=== PATIENT | male | born 1950 | race Caucasian/White ===

== ENCOUNTER 2018-06-09 13:22 | Emergency (ER) | payer OTHER ==
[~2018-06-09] VITALS: Ht 170.2 cm; Wt 92.0 kg
[~2018-06-09 13:22] MED LIST: AMBIEN5 MG PO; ASCORBIC ACID500 M3 PO; ASPIR 8181 M1 PO; CELEBREX200 MG PO; COSOPT 0.5200 DROP/1 BOTH EYES; COUMADIN,JANTOVE1 MG PO; CRESTOR5 MG PO; DAILY VITE1 EAC1 PO; DILANTIN100 MG PO; FOLIC ACID1 MG PO; Feosol PO; HYDROCHLOROTHIA25 MG PO; Hydrodiuril,Oretic,E PO; KEPPRA250 MG PO; KEPPRA500 MG PO; KEPPRA750 MG PO; Keppra PO; LASIX20 MG PO; LINZESS145 MCG PO; LINZESS290 MCG PO; LO-DOSE ASPIRIN81 M1 PO; LUMIGAN 0.50 DROP/22 BOTH EYES; Lasix PO; METAMUCIL0.52 GM PO; MOBIC15 MG PO; MYSOLINE250 M1 PO; MYSOLINE250 MG PO; NABUMETONE750 M1 PO; NABUMETONE750 MG PO; OMEPRAZOLE40 M1 PO; OMEPRAZOLE40 MG PO; ONE DAILY TABL1 EAC1 PO; OXYCODONE HCL5 MG PO; PHENOBARBITAL32.4 MG PO; PREDNISONE10 MG PO; PREDNISONE20 MG PO; PRILOSEC40 MG PO; PRIMIDONE250 MG PO; PriLOSEC PO; SENOKOT S,PE1 TABLET PO; STOOL SOFTENER100 MG PO; VANCOCIN 125 M125 MG PO; VIMPAT150 MG PO; VIMPAT50 MG PO; VITAMIN D400 UNI1 PO; Vicodin,Norco 5/325 PO; ZOFRAN4 MG PO
[2018-06-09 14:18] LABS: HEMATOCRIT 39.7 % (38.0-50.0); HEMOGLOBIN 13.9 G/DL (12.5-16.6); MCH 32.3 PG (29.0-34.0); MCV 92.1 FL (86-99); PLATELET COUNT 152 K/uL (156-360); RBC DIS.WIDTH-CV 13.2 % (11.8-14.6); RBC DIS.WIDTH-SD 45.4 % (39-53); RED BLOOD COUNT 4.31 M/uL (4.00-5.50); WHITE BLOOD COUNT 8.4 K/uL (4.1-10.2)
[2018-06-09 14:28] LABS: ALBUMIN 4.3 g/dL (3.2-4.8); CHLORIDE 107 mEq/L (99-109); POTASSIUM 4.4 mEq/L (3.7-5.4); SODIUM 142 mEq/L (136-147)
[2018-06-09 14:30] LABS: GLUCOSE 97 mg/dL (70-99)
[2018-06-09 14:32] LABS: TOTAL BILIRUBIN 0.5 mg/dL (0.0-1.0)
[2018-06-09 14:34] LABS: ALKALINE PHOSPHATASE 135 IU/L (3-129); CREATININE 1.2 mg/dL (0.6-1.3); GFR ESTIMATE (CALCULATED) > 59 mL/min/ (58.99-99999)
[2018-06-09 14:35] LABS: UREA NITROGEN (BUN) 22 mg/dL (9-23)
[2018-06-09 14:36] LABS: AST (GOT) 23 IU/L (2-34)
[2018-06-09 14:37] LABS: ALT (GPT) 20 IU/L (3-49); LIPASE 21 U/L (1.0-51.0)
[2018-06-09] MEDS ORDERED: COLACE100 MG PO (16:06)
[2018-06-09 16:19] VITALS: BP 140/59
== END 2018-06-09 16:24 | disposition home or self-care (01) ==
LOC: RME 13:22 → EME 13:22 → RME 16:24
DX: R10.31 Right lower quadrant pain (principal); K59.00 Constipation, unspecified; R11.0 Nausea; M54.5 Low back pain; I10 Essential (primary) hypertension; Z90.49 Acquired absence of other specified parts of digestive tract; Z96.641 Presence of right artificial hip joint; Z79.82 Long term (current) use of aspirin; Z79.52 Long term (current) use of systemic steroids
CPT/HCPCS: 74177; 80053; 81003; 83690; 85027; 99281; 99284; J2405; J3010; J7030